=== PATIENT | female | born 1985 | race Caucasian/White ===

== ENCOUNTER → 2020-10-06 | Outpatient (CLI) | payer BC ==
--- NOTE | 2020-10-06 16:22 | US ---
EXAMINATION TYPE: US st tissue neck DATE OF EXAM: 10/06/2020 COMPARISON: NONE CLINICAL HISTORY: 35-year-old female R22.1 neck mass. Mirror Polisher notes: Patient has felt palpable kimmy mp right neck, laterally for years. TECHNIQUE: Targeted ultrasound examination along the patient's lateral right neck palpable site. FINDINGS: Area of palpable lump = 1.2 x 0.8 x 0.5 cm. Mostly hypoechoic, with area of increased echogenicity. P ossible lymph node. IMPRESSION: Possible mildly thickened but nonenlarged lymph node along the palpable lateral right neck. This jose manuel ures 8 mm short axis. Probably reactive/post inflammatory. Consider six-month follow-up ultrasound to reassess. Image sooner if any growth is noted.
== END | disposition home or self-care (01) ==
LOC: RADUSWWP 13:27
PROVIDERS: ATTEND Family Medicine
DX: R22.1 Localized swelling, mass and lump, neck (principal); Z88.1 Allergy status to other antibiotic agents
CPT/HCPCS: 76536

== ENCOUNTER 2020-11-10 11:07 | Emergency (ER) | payer BC ==
[2020-11-10 11:16] VITALS: BP 102/69; PULSE 100; RESP 18; TEMP 98.1
[2020-11-10 12:45] LABS: ALT 16 U/L (4-34); AST 20 U/L (14-36); African American GFR (CKD) >90 (>60 ml/min/1.73 sqM); Albumin 4.1 g/dL (3.5-5.0); Alkaline Phosphatase 83 U/L (38-126); Anion Gap 7 mmol/L; Blood Urea Nitrogen 11 mg/dL (7-17); Calcium 9.3 mg/dL (8.4-10.2); Carbon Dioxide 24 mmol/L (22-30); Chloride 106 mmol/L (98-107); Glucose 101 mg/dL (74-99); Non-African American GFR(CKD) >90 (>60 ml/min/1.73 sqM); Potassium 4.3 mmol/L (3.5-5.1); Sodium 137 mmol/L (137-145); Total Bilirubin 0.6 mg/dL (0.2-1.3); Total Protein 7.2 g/dL (6.3-8.2)
--- NOTE | 2020-11-10 12:46 | US ---
EXAMINATION TYPE: Transabdominal DATE OF EXAM: 11/10/2020 12:33 PM COMPARISON: NONE CLINICAL HISTORY: pain. vaginal bleeding, cramping EXAM PERFORMED: Transabdominal (TA) EXAM MEASUREMENTS: GESTATIONAL AGE / DATING Physician Established: Not yet established Dates by LMP: (4 weeks/5 days) EDC: 07/15/21 Dates by First Scan: No previous this is first scan Dates by Current Scan for: no evidence of IUP at this time MATERNAL ANATOMY Uterus: 9.8 x 4.9 x 5.5cm Right Ovary: 3.5 x 1.3 x 1.7cm Left Ovary: 2.7 x 2.1 x 2.3cm Post CDS / Adnexa: appears wnl Presence of free fluid: no Presence of corpus luteal cyst: hypoechoic area left ovary = 1.5 x 1.5 x 1.4cm GESTATION / SURVEY no evidence of IUP at this time Date of LMP: 10/08/20 Beta HcG (if available): Not available at this time IMPRESSION: 1. No evidence of intrauterine identified. Differential diagnosis in the setting of a posit emma beta hCG would include normal too early to detect, missed , although ectopic pr egnancy could not be excluded.
[2020-11-10 12:57] LABS: Appearance,Urine Cloudy (Clear); Bilirubin,Urine Negative (Negative); Blood,Urine Moderate (Negative); Color,Urine Yellow; Glucose,Urine (UA) Negative (Negative); Ketones,Urine Negative (Negative); Leukocyte Esterase,Urine Negative (Negative); Mucus,Urine Rare /hpf; Nitrite,Urine Negative (Negative); Protein,Urine Negative (Negative); RBC,Urine 1 /hpf (0-5); Specific Gravity,Urine 1.014 (1.001-1.035); Squamous Epithelial Cell,Urine 5 /hpf (0-4); Urobilinogen,Urine <2.0 mg/dL (<2.0); WBC,Urine 1 /hpf (0-5)
[2020-11-10 13:01] LABS: HCG,Quantitative Serum 44.3 mIU/mL
[2020-11-10 13:14] LABS: Basophils # (A) 0.1 k/uL (0-0.2); Basophils % (A) 1 %; Eosinophils # (A) 0.1 k/uL (0-0.7); Eosinophils % (A) 1 %; HCT 37.5 % (34.0-46.0); HGB 13.3 gm/dL (11.4-16.0); Lymphocytes # (A) 1.2 k/uL (1.0-4.8); Lymphocytes % (A) 21 %; MCH 30.9 pg (25.0-35.0); MCHC 35.5 g/dL (31.0-37.0); MCV 87.1 fL (80.0-100.0); Mean Platelet Volume 6.9; Monocytes # (A) 0.3 k/uL (0-1.0); Monocytes % (A) 5 %; Neutrophils # (A) 4.2 k/uL (1.3-7.7); Neutrophils % (A) 72 %; Platelet Count 262 k/uL (150-450); RBC 4.31 m/uL (3.80-5.40); RDW 11.9 % (11.5-15.5); WBC 5.9 k/uL (3.8-10.6)
--- NOTE | 2020-11-10 13:19 | ED ---
Female Urogenital HPI - General Chief complaint: Vaginal Bleeding Stated complaint: 3wks pre/bleeding Time Seen by Provider: 11/10/20 11:41 Source: patient Mode of arrival: ambulatory Limitations: no limitations - History of Present Illness Initial comments: 35yo female with hx of previous ectopic treated by Dr Packer with methotrexate presenting for cc of bleeding in . Patient states she has had vaginal bleeding for the past 5 days she states initially was spotting, she states is heavy for 2 days she states she took a positive proceeded to us yesterday. Patient states she has some mild cramping no severe pain. Patient is concerned that she had previous ectopic who presented to the emergency department. Patient denies any dysuria urgency frequency nausea vomiting fevers, or vaginal discharge. Last Menstrual Period: 10/15/20 - Related Data Allergies Allergy/AdvReac Type Severity Reaction Status Date / Time No Known Allergies Allergy Verified 11/10/20 11:12 Review of Systems ROS Statement: Those systems with pertinent positive or pertinent negative responses have been documented in the HPI. ROS Other: All systems not noted in ROS Statement are negative. Past Medical History Additional Past Medical History / Comment(s): ectopic History of Any Multi-Drug Resistant Organisms: None Reported Past Surgical History: Section, Cholecystectomy Past Psychological History: No Psychological Hx Reported Smoking Status: Never smoker Past Alcohol Use History: Occasional Past Drug Use History: None Reported General Exam - General Exam Comments Initial Comments: General: The patient is awake and alert, in no distress, and does not appear acutely ill. Eye: Pupils are equal, round and reactive to light, extra-ocular movements are intact. No nystagmus. There is normal conjunctiva bilaterally. No signs of icterus. Cardiovascular: There is a regular rate and rhythm. No murmur, rub or gallop is appreciated. Respiratory: Lungs are clear to auscultation, respirations are non-labored, breath sounds are equal. No wheezes, stridor, rales, or rhonchi. Gastrointestinal: Soft, non-distended, mild lower abdominal discomfort, abdomen without masses or organomegaly noted. There is no rebound or guarding present. Musculoskeletal: Normal ROM, no tenderness. Strength 5/5. Sensation intact. Pulses equal bilaterally 2+. Neurological: A&O x 3. CN II-XII intact grossly, There are no obvious motor or sensory deficits. Coordination appears grossly intact. Speech is normal. Skin: Skin is warm and dry and no rashes or lesions are noted. Psychiatric: Cooperative, appropriate mood & affect, normal judgment. Limitations: no limitations Course Vital Signs 11/10/20 11:13 Temperature 98.1 F Pulse Rate 100 Respiratory 18 Rate Blood Pressure 102/69 O2 Sat by Pulse 99 Oximetry Medical Decision Making - Medical Decision Making Labs stable. Hcg very low at 44. no IUP. luteal cyst left sided. no evidence of ectopic at this time but it cannot be ruled out. patient refused pelvic. no significant pain endorsed. BP, HgB stable. patient will be discharged with re peat hCG in 48 hours and follow up closely with [employer] BUSINESS DEVELOPMENT MANAGER. Patient agreeable to this care plan discharge as well as attending provider, Dr Montalvo. Return parameters and risk of ectopic discussed with patient. - Lab Data Result diagrams: 11/10/20 12:50 11/10/20 12:16 Lab Results 11/10/20 11/10/20 11/10/20 Range/Units 12:16 12:16 12:16 WBC (3.8-10.6) k/uL RBC (3.80-5.40) m/uL Hgb (11.4-16.0) gm/dL Hct (34.0-46.0) % MCV (80.0-100.0) fL MCH (25.0-35.0) pg MCHC (31.0-37.0) g/dL RDW (11.5-15.5) % Plt Count (150-450) k/uL MPV Neutrophils % % Lymphocytes % % Monocytes % % Eosinophils % % Basophils % % Neutrophils # (1.3-7.7) k/uL Lymphocytes # (1.0-4.8) k/uL Monocytes # (0-1.0) k/uL Eosinophils # (0-0.7) k/uL Basophils # (0-0.2) k/uL Sodium 137 (137-145) mmol/L Potassium 4.3 (3.5-5.1) mmol/L Chloride 106 (98-107) mmol/L Carbon Dioxide 24 (22-30) mmol/L Anion Gap 7 mmol/L BUN 11 (7-17) mg/dL Creatinine 0.74 (0.52-1.04) mg/dL Est GFR (CKD-EPI)AfAm >90 (>60 ml/min/1.73 sqM) Est GFR (CKD-EPI)NonAf >90 (>60 ml/min/1.73 sqM) Glucose 101 H (74-99) mg/dL Calcium 9.3 (8.4-10.2) mg/dL Total Bilirubin 0.6 (0.2-1.3) mg/dL AST 20 (14-36) U/L ALT 16 (4-34) U/L Alkaline Phosphatase 83 (38-126) U/L Total Protein 7.2 (6.3-8.2) g/dL Albumin 4.1 (3.5-5.0) g/dL HCG, Quant 44.3 mIU/mL Urine Color Yellow Urine Appearance Cloudy H (Clear) Urine pH 6.0 (5.0-8.0) Ur Specific Temple 1.014 (1.001-1.035) Urine Protein Negative (Negative) Urine Glucose (UA) Negative (Negative) Urine Ketones Negative (Negative) Urine Blood Moderate H (Negative) Urine Nitrite Negative (Negative) Urine Bilirubin Negative (Negative) Urine Urobilinogen <2.0 (<2.0) mg/dL Ur Leukocyte Esterase Negative (Negative) Urine RBC 1 (0-5) /hpf Urine WBC 1 (0-5) /hpf Ur Squamous Epith Cells 5 H (0-4) /hpf Urine Mucus Rare H (None) /hpf Blood Type O Positive Blood Type Recheck O Pos Bld Type Recheck Status No Antibody Screen NEGATIVE Spec Expiration Date 11/13/2020 - 231511/10/20 Range/Units 12:50 WBC 5.9 (3.8-10.6) k/uL RBC 4.31 (3.80-5.40) m/uL Hgb 13.3 (11.4-16.0) gm/dL Hct 37.5 (34.0-46.0) % MCV 87.1 (80.0-100.0) fL MCH 30.9 (25.0-35.0) pg MCHC 35.5 (31.0-37.0) g/dL RDW 11.9 (11.5-15.5) % Plt Count 262 (150-450) k/uL MPV 6.9 Neutrophils % 72 % Lymphocytes % 21 % Monocytes % 5 % Eosinophils % 1 % Basophils % 1 % Neutrophils # 4.2 (1.3-7.7) k/uL Lymphocytes # 1.2 (1.0-4.8) k/uL Monocytes # 0.3 (0-1.0) k/uL Eosinophils # 0.1 (0-0.7) k/uL Basophils # 0.1 (0-0.2) k/uL Sodium (137-145) mmol/L Potassium (3.5-5.1) mmol/L Chloride (98-107) mmol/L Carbon Dioxide (22-30) mmol/L Anion Gap mmol/L BUN (7-17) mg/dL Creatinine (0.52-1.04) mg/dL Est GFR (CKD-EPI)AfAm (>60 ml/min/1.73 sqM) Est GFR (CKD-EPI)NonAf (>60 ml/min/1.73 sqM) Glucose (74-99) mg/dL Calcium (8.4-10.2) mg/dL Total Bilirubin (0.2-1.3) mg/dL AST (14-36) U/L ALT (4-34) U/L Alkaline Phosphatase (38-126) U/L Total Protein (6.3-8.2) g/dL Albumin (3.5-5.0) g/dL HCG, Quant mIU/mL Urine Color Urine Appearance (Clear) Urine pH (5.0-8.0) Ur Specific Temple (1.001-1.035) Urine Protein (Negative) Urine Glucose (UA) (Negative) Urine Ketones (Negative) Urine Blood (Negative) Urine Nitrite (Negative) Urine Bilirubin (Negative) Urine Urobilinogen (<2.0) mg/dL Ur Leukocyte Esterase (Negative) Urine RBC (0-5) /hpf Urine WBC (0-5) /hpf Ur Squamous Epith Cells (0-4) /hpf Urine Mucus (None) /hpf Blood Type Blood Type Recheck Bld Type Recheck Status Antibody Screen Spec Expiration Date Disposition Clinical Impression: Vaginal bleeding during , Threatened Disposition: HOME SELF-CARE Condition: Good Additional Instructions: Please use medication as discussed. Please follow-up with OBGYN in next week, return for any increasing pain/bleeding, lightheadedness, repeat HCG in 48 hours. Please return to emergency room if the symptoms increase or worsen or for any other concerns. Is patient prescribed a controlled substance at d/c from ED?: No Referrals: Lenny Kauffman MD [Primary Care Provider] - 1-2 days Mango Packer MD [STAFF PHYSICIAN] - 1-2 days Time of Disposition: 13:18
== END 2020-11-10 13:34 | disposition home or self-care (01) ==
LOC: EC 11:07
DX: O20.0 Threatened abortion (principal)
CPT/HCPCS: 36415; 76801; 80053; 81001; 84702; 85025; 86850; 86900; 86901; 99284

== ENCOUNTER → 2020-11-12 | Outpatient (CLI) | payer BC | END | disposition home or self-care (01) | LOC: LABWHC1 07:41 | PROVIDERS: ATTEND Family Medicine | DX: O20.0 Threatened abortion (principal); Z3A.00 Weeks of gestation of pregnancy not specified | CPT/HCPCS: 36415; 84702 ==

== ENCOUNTER → 2020-11-18 | Outpatient (CLI) | payer BC | END | disposition home or self-care (01) | LOC: LABWHC1 15:04 | PROVIDERS: ATTEND Obstetrics & Gynecology | DX: O20.0 Threatened abortion (principal); Z3A.00 Weeks of gestation of pregnancy not specified | CPT/HCPCS: 36415; 84702 ==

== ENCOUNTER → 2020-11-26 | Outpatient (CLI) | payer BC | END | disposition home or self-care (01) | LOC: LABWHC1 08:23 | PROVIDERS: ATTEND Obstetrics & Gynecology | DX: O02.1 Missed abortion (principal); Z3A.00 Weeks of gestation of pregnancy not specified | CPT/HCPCS: 36415; 84702 ==

== ENCOUNTER → 2020-11-27 | Outpatient (CLI) | payer BC ==
[~2020-11-27] MED LIST: METHOTREXATE SODIUM IM ONE
[2020-11-27 14:40] VITALS: BP 115/79; PULSE 88; RESP 16; TEMP 98.4
== END ==
LOC: PROCWHC3 14:07
PROVIDERS: ATTEND Obstetrics & Gynecology
DX: O00.90 Unspecified ectopic pregnancy without intrauterine pregnancy (principal); Z3A.00 Weeks of gestation of pregnancy not specified
CPT/HCPCS: 96402; J9260

== ENCOUNTER → 2020-11-27 | Outpatient (CLI) | payer BC ==
[2020-11-27 19:20] LABS: MCH 29.9 pg (27.0-32.0); MCHC 32.5 g/dL (32.0-37.0); Mean Platelet Volume 10.2 fL (9.5-12.2); Platelet Count 315 X 10*3/uL (140-440); RBC 4.35 X 10*6/uL (4.10-5.20); RDW 11.8 % (11.5-14.5); WBC 7.35 X 10*3/uL (4.50-10.00)
[2020-11-28 02:01] LABS: African American GFR (CKD) 97.4 (60.0-200.0)
[2020-11-28 02:09] LABS: HCG,Quantitative Serum 43.2 mIU/mL
== END | disposition home or self-care (01) ==
LOC: LABWHC1 13:43
PROVIDERS: ATTEND Obstetrics & Gynecology
DX: O00.90 Unspecified ectopic pregnancy without intrauterine pregnancy (principal); Z3A.00 Weeks of gestation of pregnancy not specified
CPT/HCPCS: 36415; 82565; 84450; 84460; 84520; 84702; 85027; 86850; 86900; 86901

== ENCOUNTER → 2020-12-01 | Outpatient (CLI) | payer BC ==
[2020-12-01 23:51] LABS: HCT 40.1 % (37.2-46.3); MCH 29.4 pg (27.0-32.0); MCHC 32.4 g/dL (32.0-37.0); MCV 90.7 fL (80.0-97.0); Mean Platelet Volume 10.3 fL (9.5-12.2); Platelet Count 306 X 10*3/uL (140-440); RBC 4.42 X 10*6/uL (4.10-5.20); RDW 11.7 % (11.5-14.5); WBC 7.87 X 10*3/uL (4.50-10.00)
== END | disposition home or self-care (01) ==
LOC: LABWHC1 15:27
PROVIDERS: ATTEND Obstetrics & Gynecology
DX: O00.90 Unspecified ectopic pregnancy without intrauterine pregnancy (principal); Z3A.00 Weeks of gestation of pregnancy not specified
CPT/HCPCS: 36415; 84702; 85027

== ENCOUNTER → 2020-12-04 | Outpatient (CLI) | payer BC ==
[2020-12-04 14:55] LABS: HCT 39.6 % (37.2-46.3); MCH 29.7 pg (27.0-32.0); MCHC 32.8 g/dL (32.0-37.0); MCV 90.6 fL (80.0-97.0); Mean Platelet Volume 10.1 fL (9.5-12.2); Platelet Count 250 X 10*3/uL (140-440); RBC 4.37 X 10*6/uL (4.10-5.20); RDW 11.9 % (11.5-14.5); WBC 5.31 X 10*3/uL (4.50-10.00)
[2020-12-04 23:26] LABS: African American GFR (CKD) 97.4 (60.0-200.0)
[2020-12-04 23:35] LABS: HCG,Quantitative Serum 9.2 mIU/mL
== END | disposition home or self-care (01) ==
LOC: LABWHC1 09:56
PROVIDERS: ATTEND Obstetrics & Gynecology
DX: O00.90 Unspecified ectopic pregnancy without intrauterine pregnancy (principal); Z3A.00 Weeks of gestation of pregnancy not specified
CPT/HCPCS: 36415; 82565; 84450; 84460; 84520; 84702; 85027

== ENCOUNTER 2021-04-13 11:47 | Emergency (ER) | payer BC ==
[2021-04-13 12:07] VITALS: RESP 18
[2021-04-13] MEDS ORDERED: METOCLOPRAMIDE 5 MG/ML 2 ML VIAL IVP STA (12:22)
[2021-04-13] MEDS ORDERED: diphenhydrAMINE 50 MG/ML 1 ML VIAL IVP STA (12:22)
[2021-04-13] MEDS ORDERED: CAFFEINE CITRATE 500 MG in DEXTROSE 5% IN WATER 50 ML IVPB STA ×2 (12:22)
[2021-04-13] MEDS ORDERED: SODIUM CHLORIDE 0.9% 1,000 ML IV STA (12:26)
--- NOTE | 2021-04-13 12:28 | ED ---
General Adult HPI - General Chief complaint: Recheck/Abnormal Lab/Rx Stated complaint: spinal headache Time Seen by Provider: 04/13/21 12:08 Source: patient, family, RN notes reviewed Mode of arrival: wheelchair Limitations: no limitations - History of Present Illness Initial comments: Patient is a pleasant 36-year-old female presenting to the emergency Department with complaints of headache. Onset of symptoms was after lumbar puncture 6 days ago. Patient states headache has been persistent. Headache is worse with upright positions. Headache improved with lying down. Patient did have some nausea and vomiting today. Patient has decreased appetite. No fevers. Patient did have lumbar puncture done 6 days ago at [facility] [place] secondary to new onset seizure. Headache started after lumbar puncture. - Related Data Home Medications Medication Instructions Recorded Confirmed Ergocalciferol (Vitamin D2) 1,250 mcg PO WEEKLY 11/27/20 11/27/20 [Vitamin D2 (50,000 Iu)] Previous Rx's Medication Instructions Recorded Metoclopramide HCl [Reglan] 10 mg PO Q6HR PRN #15 tablet 04/13/21 Allergies Allergy/AdvReac Type Severity Reaction Status Date / Time ceftriaxone [From Rocephin] Allergy Rash/Hives Verified 04/13/21 12:04 Review of Systems ROS Statement: Those systems with pertinent positive or pertinent negative responses have been documented in the HPI. ROS Other: All systems not noted in ROS Statement are negative. Constitutional: Denies: fever Eyes: Denies: eye pain ENT: Denies: ear pain Respiratory: Denies: cough Cardiovascular: Denies: chest pain Endocrine: Denies: fatigue Gastrointestinal: Reports: nausea, vomiting. Denies: abdominal pain Genitourinary: Denies: dysuria Musculoskeletal: Denies: back pain Skin: Denies: rash Neurological: Reports: as per HPI, headache. Denies: weakness Past Medical History Additional Past Medical History / Comment(s): ectopic History of Any Multi-Drug Resistant Organisms: None Reported Past Surgical History: Section, Cholecystectomy Past Psychological History: No Psychological Hx Reported Smoking Status: Never smoker Past Alcohol Use History: None Reported Past Drug Use History: None Reported General Exam Limitations: no limitations General appearance: alert, in no apparent distress Head exam: Present: atraumatic Eye exam: Present: normal appearance, PERRL, EOMI. Absent: nystagmus ENT exam: Present: normal oropharynx Neck exam: Present: normal inspection Respiratory exam: Present: normal lung sounds bilaterally Cardiovascular Exam: Present: regular rate, normal rhythm GI/Abdominal exam: Present: soft. Absent: tenderness Extremities exam: Present: normal inspection Neurological exam: Present: alert, oriented X3, CN II-XII intact. Absent: motor sensory deficit Expanded Neurological exam: Present: protecting the airway Speech: Present: fluid speech Cranial nerves: EOM's Intact: Normal, Facial Sensation: Normal Sensory exam: Upper Extremity Light Touch: Normal, Lower Extremity Light Touch: Normal Motor strength exam: RUE: 5, LUE: 5, RLE: 5, LLE: 5 Eye Response: (4) open spontaneously Motor Response: (6) obeys commands Verbal Response: (5) oriented Psychiatric exam: Present: normal affect, normal mood Skin exam: Present: normal color Course Vital Signs 04/13/21 12:05 Temperature 97.5 F L Pulse Rate 101 H Respiratory 18 Rate Blood Pressure 134/90 O2 Sat by Pulse 98 Oximetry - Reevaluation(s) Reevaluation #1: 04/13/21 15:34 Patient reevaluated and feeling much better. Patient was able to get up using restroom without difficulty. Patient did request speaking with anesthesiologist. I did discuss case with Dr. Hardy who recommends not doing blood patch secondary to risks of patient's symptoms worsen including back discomfort following reentering the area. Patient updated regarding this and is agreeable to hold off on blood patch at this time. Patient is made aware that typically spinal headaches resolve within one week. Disposition Clinical Impression: Spinal headache Disposition: HOME SELF-CARE Condition: Stable Instructions (If sedation given, give patient instructions): Acute Headache (ED) Additional Instructions: Limit activity for the next one to 2 days. Please follow-up with primary care physician in the next day or 2 for recheck. Return for fever, increased pain, v omiting, worsening or changing symptoms or other concerns. Prescriptions have been sent to your pharmacy. [id number] Tylenol or Motrin as needed. [id number] Benadryl as needed. Prescriptions: Metoclopramide HCl [Reglan] 10 mg PO Q6HR PRN #15 tablet PRN Reason: Nausea Is patient prescribed a controlled substance at d/c from ED?: No Referrals: Lenny Kauffman MD [Primary Care Provider] - 1-2 days Time of Disposition: 15:38
[2021-04-13] MEDS ORDERED: CAFFEINE-SODIUM BENZOATE 1,000 MG in SODIUM CHLORIDE 0.9% 1,000 ML IVPB ONE (12:30)
[2021-04-13 16:03] VITALS: BP 98/54; PULSE 65; TEMP 97.9
== END 2021-04-13 16:03 | disposition home or self-care (01) ==
LOC: EC 11:47
DX: R51.0 Headache with orthostatic component, not elsewhere classified (principal); G97.1 Other reaction to spinal and lumbar puncture; Z88.1 Allergy status to other antibiotic agents; Z90.49 Acquired absence of other specified parts of digestive tract
CPT/HCPCS: 99283; 96365; 96366 ×2; 96375 ×2; J1200; J2765

== ENCOUNTER 2021-04-15 08:45 | Emergency (ER) | payer BC ==
[2021-04-15 08:50] VITALS: RESP 18; TEMP 97.5
[2021-04-15] MEDS ORDERED: SODIUM CHLORIDE 0.9% 1,000 ML IV STA (09:01)
[2021-04-15] MEDS ORDERED: MORPHINE SULFATE 2 MG/ML SYRINGE IVP STA (09:02)
--- NOTE | 2021-04-15 09:06 | ED ---
General Adult HPI - General Chief complaint: Nausea/Vomiting/Diarrhea Stated complaint: vomiting, left side numbness Time Seen by Provider: 04/15/21 08:54 Source: patient, family, RN notes reviewed Mode of arrival: wheelchair Limitations: no limitations - History of Present Illness Initial comments: Patient is a pleasant 36-year-old female presenting to the emergency department with concerns for her left arm feeling numb. Onset of symptoms was yesterday morning. Patient did have lumbar puncture done at outside facility over a week ago. Patient returned here 2 days ago concerning for headache that was positional in nature following the lumbar puncture. Patient did improve with medications in the emergency department. Patient states headache continues to improve. Headache at this time is rated 45/10. Patient did have some numbness of her left face early this morning that has improved. Patient did have some weakness and numbness of her left arm since yesterday morning. This has persisted. Patient does not want any medication for nausea at this time. - Related Data Home Medications Medication Instructions Recorded Confirmed Ergocalciferol (Vitamin D2) 1,250 mcg PO Q14D 11/27/20 04/15/21 [Vitamin D2 (50,000 Iu)] Aspirin/Acetaminophen/Caffeine 2 tab PO Q6H PRN 04/15/21 04/15/21 [Excedrin Extra Strength Caplet] Isibloom 0.15-0.03mg 1 tab PO DAILY 04/15/21 04/15/21 diphenhydrAMINE [Benadryl] 25 mg PO Q6H PRN 04/15/21 04/15/21 Previous Rx's Medication Instructions Recorded Metoclopramide HCl [Reglan] 10 mg PO Q6HR PRN #15 tablet 04/13/21 Allergies Allergy/AdvReac Type Severity Reaction Status Date / Time ceftriaxone [From Rocephin] Allergy Rash/Hives Verified 04/15/21 10:30 Review of Systems ROS Statement: Those systems with pertinent positive or pertinent negative responses have been documented in the HPI. ROS Other: All systems not noted in ROS Statement are negative. Constitutional: Denies: fever Eyes: Denies: eye pain ENT: Denies: ear pain Respiratory: Denies: cough Cardiovascular: Denies: chest pain Endocrine: Denies: fatigue Gastrointestinal: Reports: nausea, vomiting. Denies: abdominal pain Genitourinary: Denies: dysuria Musculoskeletal: Denies: back pain Skin: Denies: rash Neurological: Reports: as per HPI, headache, weakness, numbness. Denies: confusion Past Medical History Additional Past Medical History / Comment(s): ectopic History of Any Multi-Drug Resistant Organisms: None Reported Past Surgical History: Section, Cholecystectomy Past Psychological History: No Psychological Hx Reported Smoking Status: Never smoker Past Alcohol Use History: None Reported Past Drug Use History: None Reported General Exam Limitations: no limitations General appearance: alert, in no apparent distress Head exam: Present: atraumatic, normocephalic Eye exam: Present: normal appearance, PERRL, EOMI. Absent: nystagmus ENT exam: Present: normal oropharynx Neck exam: Present: normal inspection Respiratory exam: Present: normal lung sounds bilaterally Cardiovascular Exam: Present: regular rate, normal rhythm GI/Abdominal exam: Present: soft. Absent: tenderness Extremities exam: Present: normal inspection Neurological exam: Present: alert, oriented X3, CN II-XII intact Expanded Neurological exam: Present: protecting the airway Speech: Present: fluid speech Cranial nerves: EOM's Intact: Normal, Facial Sensation: Normal Sensory exam: Upper Extremity Light Touch: Abnormal Left, Lower Extremity Light Touch: Normal Motor strength exam: RUE: 5, LUE: 3, RLE: 5, LLE: 5 Eye Response: (4) open spontaneously Motor Response: (6) obeys commands Verbal Response: (5) oriented Psychiatric exam: Present: normal affect, normal mood Skin exam: Present: normal color Course Vital Signs 04/15/21 04/15/21 04/15/21 08:46 09:15 09:30 Temperature 97.5 F L 97.5 F L Pulse Rate 110 H 105 H 90 Respiratory 18 18 18 Rate Blood Pressure 125/88 137/93 123/67 O2 Sat by Pulse 95 98 100 Oximetry 04/15/21 10:00 Temperature Pulse Rate 85 Respiratory 18 Rate Blood Pressure 126/66 O2 Sat by Pulse 100 Oximetry - Reevaluation(s) Reevaluation #1: 04/15/21 09:13 Case was discussed in detail with Dr. Monroe. He will review the films and call back. He agrees patient is not a TPA candidate secondary to onset of symptoms over 24 hours ago. 04/15/21 10:03 Case discussed with radiologist. Case also discussed with Dr. Monroe. They both have concern for venous sinus thrombosis. Case discussed with Dr. Monroe who recommends low-dose heparin. He will call back regarding potential admission versus transfer. Patient will need MRI. Patient updated. Dr. Monroe is comfortable with patient having heparin despite recent lumbar puncture approximately 8 days ago. 04/15/21 10:19 Patient states she is on control. 04/15/21 10:24 Case again discussed with Dr. Monroe who wants low dose heparin without bolus. Keep ptt between 45 and 60. He does want hypercoagulable panel done prior to heparin. Patient will need MRI. Patient can be admitted here to our ICU. Neurology has been paged. 04/15/21 11:12 Patient and family updated. Case discussed with Dr. Braden with neurology here. Case also discussed with Dr. Lund who had concerns regarding keeping patient here. Case also discussed with Dr. Kauffman who also had concerns keeping patient here. Case was again discussed with Dr. Carvalho will accept transfer to [facility]. He also spoke with his practitioner Meryl who will notify the emergency department but otherwise they will accept transfer to [facility]. She said we do not need to contact the emergency department. Patient again updated regarding transfer status. 04/15/21 11:13 EKG Findings - EKG Comments: EKG Findings:: Normal sinus rhythm with rate of 93. AL 1:30. QRS 76. QT 364. QTC 452. Normal axis. Normal QRS. No acute ST change. Medical Decision Making - Lab Data Result diagrams: 04/15/21 09:15 04/15/21 09:15 Lab Results 04/15/21 04/15/21 04/15/21 Range/Units 09:05 09:15 09:15 WBC 8.2 (3.8-10.6) k/uL RBC 4.63 (3.80-5.40) m/uL Hgb 14.3 (11.4-16.0) gm/dL Hct 41.2 (34.0-46.0) % MCV 89.1 (80.0-100.0) fL MCH 31.0 (25.0-35.0) pg MCHC 34.7 (31.0-37.0) g/dL RDW 11.5 (11.5-15.5) % Plt Count 274 (150-450) k/uL MPV 7.3 Neutrophils % 81 % Lymphocytes % 13 % Monocytes % 5 % Eosinophils % 1 % Basophils % 0 % Neutrophils # 6.7 (1.3-7.7) k/uL Lymphocytes # 1.0 (1.0-4.8) k/uL Monocytes # 0.4 (0-1.0) k/uL Eosinophils # 0.0 (0-0.7) k/uL Basophils # 0.0 (0-0.2) k/uL PT 10.4 (9.0-12.0) sec INR 1.0 (<1.2) APTT 21.5 L (22.0-30.0) sec Sodium (137-145) mmol/L Potassium (3.5-5.1) mmol/L Chloride (98-107) mmol/L Carbon Dioxide (22-30) mmol/L Anion Gap mmol/L BUN (7-17) mg/dL Creatinine (0.52-1.04) mg/dL Est GFR (CKD-EPI)AfAm (>60 ml/min/1.73 sqM) Est GFR (CKD-EPI)NonAf (>60 ml/min/1.73 sqM) Glucose (74-99) mg/dL POC Glucose (mg/dL) 109 H (75-99) mg/dL POC Glu Knitter Helper ISABELLE Valentina Clark Calcium (8.4-10.2) mg/dL Total Bilirubin (0.2-1.3) mg/dL AST (14-36) U/L ALT (4-34) U/L Alkaline Phosphatase (38-126) U/L Troponin I (0.000-0.034) ng/mL Total Protein (6.3-8.2) g/dL Albumin (3.5-5.0) g/dL 04/15/21 04/15/21 Range/Units 09:15 09:15 WBC (3.8-10.6) k/uL RBC (3.80-5.40) m/uL Hgb (11.4-16.0) gm/dL Hct (34.0-46.0) % MCV (80.0-100.0) fL MCH (25.0-35.0) pg MCHC (31.0-37.0) g/dL RDW (11.5-15.5) % Plt Count (150-450) k/uL MPV Neutrophils % % Lymphocytes % % Monocytes % % Eosinophils % % Basophils % % Neutrophils # (1.3-7.7) k/uL Lymphocytes # (1.0-4.8) k/uL Monocytes # (0-1.0) k/uL Eosinophils # (0-0.7) k/uL Basophils # (0-0.2) k/uL PT (9.0-12.0) sec INR (<1.2) APTT (22.0-30.0) sec Sodium 137 (137-145) mmol/L Potassium 4.0 (3.5-5.1) mmol/L Chloride 103 (98-107) mmol/L Carbon Dioxide 20 L (22-30) mmol/L Anion Gap 14 mmol/L BUN 12 (7-17) mg/dL Creatinine 0.93 (0.52-1.04) mg/dL Est GFR (CKD-EPI)AfAm >90 (>60 ml/min/1.73 sqM) Est GFR (CKD-EPI)NonAf 81 (>60 ml/min/1.73 sqM) Glucose 118 H (74-99) mg/dL POC Glucose (mg/dL) (75-99) mg/dL POC Glu Knitter Helper ID Calcium 9.8 (8.4-10.2) mg/dL Total Bilirubin 0.7 (0.2-1.3) mg/dL AST 26 (14-36) U/L ALT 37 H (4-34) U/L Alkaline Phosphatase 90 (38-126) U/L Troponin I <0.012 (0.000-0.034) ng/mL Total Protein 7.7 (6.3-8.2) g/dL Albumin 4.2 (3.5-5.0) g/dL - Radiology Data Radiology results: report reviewed (CT and CTA as discussed with radiologist concerns for venous sinus thrombosis.) Critical Care Time Critical Care Time: Yes Total Critical Care Time: 39 Disposition Clinical Impression: Cerebral venous sinus thrombosis Disposition: OTHER INSTITUTION NOT DEFINED Condition: Serious Is patient prescribed a controlled substance at d/c from ED?: No Referrals: Lenny Kauffman MD [Primary Care Provider] - 1-2 days Time of Disposition: 11:14 - Out of Hospital Transfer - Req. Specs Out of Hospital Transfer - Requested Specifics: Other Emergency Center
[2021-04-15 09:07] LABS: Glucose,Whole Blood 109 mg/dL (75-99)
[2021-04-15 09:23] LABS: Basophils % (A) 0 %; Eosinophils % (A) 1 %; HCT 41.2 % (34.0-46.0); HGB 14.3 gm/dL (11.4-16.0); Lymphocytes % (A) 13 %; MCHC 34.7 g/dL (31.0-37.0); MCV 89.1 fL (80.0-100.0); Mean Platelet Volume 7.3; Monocytes # (A) 0.4 k/uL (0-1.0); Monocytes % (A) 5 %; Neutrophils # (A) 6.7 k/uL (1.3-7.7); Neutrophils % (A) 81 %; Platelet Count 274 k/uL (150-450); RBC 4.63 m/uL (3.80-5.40); RDW 11.5 % (11.5-15.5); WBC 8.2 k/uL (3.8-10.6)
[2021-04-15 09:33] LABS: Prothrombin Time 10.4 sec (9.0-12.0)
[2021-04-15] MEDS ORDERED: ACETAMINOPHEN IV (For NPO) 1,000 MG in EMPTY BAG 1 BAG IVPB STA (09:36)
[2021-04-15] MEDS ORDERED: ONDANSETRON 4 MG/2 ML VIAL IVP STA (09:36)
[2021-04-15 09:37] LABS: ALT 37 U/L (4-34); AST 26 U/L (14-36); African American GFR (CKD) >90 (>60 ml/min/1.73 sqM); Albumin 4.2 g/dL (3.5-5.0); Alkaline Phosphatase 90 U/L (38-126); Anion Gap 14 mmol/L; Blood Urea Nitrogen 12 mg/dL (7-17); Calcium 9.8 mg/dL (8.4-10.2); Carbon Dioxide 20 mmol/L (22-30); Chloride 103 mmol/L (98-107); Glucose 118 mg/dL (74-99); Non-African American GFR(CKD) 81 (>60 ml/min/1.73 sqM); Sodium 137 mmol/L (137-145); Total Bilirubin 0.7 mg/dL (0.2-1.3); Total Protein 7.7 g/dL (6.3-8.2)
--- NOTE | 2021-04-15 09:39 | CT ---
EXAMINATION TYPE: CT brain wo con DATE OF EXAM: 04/15/2021 COMPARISON: None HISTORY: left side weakness CT DLP: 1089 mGycm. Automated Exposure Control for Dose Reduction was Utilized. TECHNIQUE: CT scan of the head is performed without contrast. FINDINGS: There is no acute intracranial hemorrhage, mass effect, or midline shift identified. The ventricles and sulci are within normal limits in size. The globes are intact and the visualized sin uses are clear. Venous sinuses are somewhat hyperdense. Recommend post contrast exam for further eval uation. IMPRESSION: 1. No acute intracranial hemorrhage, mass effect, or midline shift is seen. 2. Posterior sagittal venous sinus is hyperdense recommend post contrast assessment to assess for meredith ous sinus thrombosis. Correlate with MRI to assess for acute infarct.
[2021-04-15 09:48] LABS: Partial Thromboplastin Time 21.5 sec (22.0-30.0)
--- NOTE | 2021-04-15 10:02 | XR ---
EXAMINATION TYPE: XR chest 2V DATE OF EXAM: 04/15/2021 COMPARISON: NONE TECHNIQUE: PA and lateral views submitted. HISTORY: Altered mental status FINDINGS: The lungs are clear and there is no pneumothorax, pleural effusion, or focal pneumonia. IMPRESSION: 1. No acute process.
[2021-04-15] MEDS ORDERED: HEPARIN SODIUM 1,000 UN/ML (10ML VL) IV PRN (10:04)
--- NOTE | 2021-04-15 10:07 | CT ---
EXAMINATION TYPE: CT angio head neck DATE OF EXAM: 04/15/2021 HISTORY: left side weakness, code stroke. Acute onset neurologic deficit. COMPARISON: CT brain study earlier today CT DLP: 1100 mGycm. Automated Exposure Control for Dose Reduction was Utilized. TECHNIQUE: CTA scan of the head and neck are performed with IV Contrast, patient injected with 60 mL of Isovue 370, axial images are obtained, coronal and sagittal reformatted images are reviewed. 3D r econstructed images are created on an independent workstation and reviewed. FINDINGS: Carotid/Vascular Structures: Normal 3 vessel origin from aortic arch without significant plaque or st enosis. Normal origin right common carotid artery from the right brachiocephalic artery. No significa nt plaque or stenosis in the common or internal carotid arteries bilaterally including at the level o f carotid bulbs. Patent external carotid arteries bilaterally without significant plaque or stenosis. Codominant vertebral arteries patent to basilar junction. Patent bilateral posterior communicating ar stephanie. No significant focal stenosis or aneurysmal change in the posterior circulation. Anterior circu lation shows close proximity of the anterior cerebral arteries and thus poor visualization of anterio r communicating artery. No significant focal stenosis or aneurysm in the anterior circulation. As suspected on CT there is draining Straight sinus seen sagittal image 13 with patent internal cere bral veins of Tez. There are patent bilateral transverse and sigmoid sinuses draining into the inte rnal jugular veins. There is filling defect in the superior sagittal sinus corresponding to the hyper dense area on CT. This is consistent with thrombus. There is poor visualization of the inferior sagit amada sinus without definitive hyperdense material on noncontrast CT sagittal image 13, additional thro mbus at this level cannot be excluded. Other: No additional significant abnormalities seen. IMPRESSION: No significant stenosis in the carotid arteries. No significant stenosis at [place]. 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 Critical results communicated to ordering ER physician via telephone at time of dictation. NASCET criteria was used in interpretation of this exam?
[2021-04-15] MEDS ORDERED: LORazepam 2 MG/ML INJ IV STA (10:08)
[2021-04-15] MEDS ORDERED: HEPARIN SOD,PORK IN 0.45% NACL 25,000 UNIT in 0.45% NACL 1 250ML.BAG IV SCH (10:15)
[2021-04-15] MEDS ORDERED: HEPARIN SODIUM 1,000 UN/ML (10ML VL) IV ONE (10:18)
[2021-04-15 10:54] VITALS: BP 126/66; PULSE 85
[2021-04-15] MEDS ORDERED: METOCLOPRAMIDE 5 MG/ML 2 ML VIAL IVP STA (11:23)
[2021-04-16 11:20] LABS: Anti-Thrombin III Antigen 99 % (80 - 120); Protein S Antigen 84 % (50 - 140)
[2021-04-17 13:47] LABS: Protein C Antigen 58 % (72-160)
[2021-04-18 15:29] LABS: Von Willebrand Factor Antigen 97 % (52-214)
== END 2021-04-15 11:45 | disposition other institution (70) ==
LOC: EC 08:45
DX: G08 Intracranial and intraspinal phlebitis and thrombophlebitis (principal); Z79.82 Long term (current) use of aspirin; Z79.899 Other long term (current) drug therapy; Z88.1 Allergy status to other antibiotic agents; Z90.49 Acquired absence of other specified parts of digestive tract
CPT/HCPCS: 36415; 93005; 85379; 85302; 85305; 80053; 85301; 82728; 84484; 85025; 85610; 85730; 85246; 83090; 81241; 71046; 70496; 70450; 70498; 99291; 96365; 96375 ×4; J2060; J2765; J2405; J0131; Q9967; J1644

== ENCOUNTER → 2021-08-13 | Outpatient (CLI) | payer BC ==
--- NOTE | 2021-08-14 05:09 | MR ---
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 There is no mass effect or midline shift. There is no sign of intracranial hemorrhage. Corpus callosum appears normal. Brainstem is intact. There is no evidence of an acute in farct. The wilkinson and white matter structures are fairly normal signal pattern. There is no evidence of cerebral edema. Sella turcica appears normal. There is no evidence of orbital mass. IMPRESSION: Negative MR scan of the brain. No change.
--- NOTE | 2021-08-14 05:49 | MR ---
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 There is some venous flow demonstrated in the sagittal sinus. There is venous flow in the cerebral ve in and the straight sinus and sigmoid sinus. There is venous flow demonstrated in the jugular veins. The size of the transverse sinus is small on the right side. This could relate to some presence of th rombus. 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
== END | disposition home or self-care (01) ==
LOC: RADMRIMAIN 08:31
PROVIDERS: ATTEND Psychiatry & Neurology Neurology
DX: G08 Intracranial and intraspinal phlebitis and thrombophlebitis (principal)
CPT/HCPCS: 70544; 70551

== ENCOUNTER → 2021-11-18 | Outpatient (CLI) | payer BC | END | disposition home or self-care (01) | LOC: LABWHC1 14:06 | PROVIDERS: ATTEND Psychiatry & Neurology Neurology | DX: U07.1 COVID-19 (principal) | CPT/HCPCS: 36415; 86769 ==

== ENCOUNTER → 2022-02-22 | Outpatient (CLI) | payer BC ==
--- NOTE | 2022-02-23 04:52 | MR ---
EXAMINATION TYPE: MR venography head wo con DATE OF EXAM: 02/22/2022 COMPARISON: 08/13/2021 HISTORY: Check up, compare to prior MRV, thrombosis superior sagittal sinus, transverse sinus thrombo sis. MR venographic images were obtained of the intracerebral veins. FINDINGS: There is a filling defect in the posterior sagittal sinus. There appears to be some recanalization. T he transverse sinuses showed normal venous signal pattern. No filling defect. Sigmoid sinus appears n ormal. There is venous flow in the cerebral vein. 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 N o evidence of any new thrombus compared to the old exam.
== END | disposition home or self-care (01) ==
LOC: RADMRIMAIN 19:23
PROVIDERS: ATTEND Psychiatry & Neurology Neurology
DX: G08 Intracranial and intraspinal phlebitis and thrombophlebitis (principal)
CPT/HCPCS: 70544

== ENCOUNTER → 2022-06-14 | Outpatient (CLI) | payer BC ==
--- NOTE | 2022-06-14 22:17 | MR ---
EXAMINATION TYPE: MR venography head wo con DATE OF EXAM: 06/14/2022 4:45 PM CLINICAL INDICATION:Female, 37 years old with history of G08 INTRACRANIAL AND INTRASPINAL PHLEBITIS A ND THR; COMPARISON: 02/22/2022, 08/13/2021, 04/16/2021. TECHNIQUE: MRV of the brain was performed utilizing two-dimensional [id number] technique. FINDINGS: There is a similar morphology to the confluence of sinuses with chronic appearing thrombus. The sagit amada sinus appears patent with similar morphology. No new dural venous sinus thrombosis identified. Pa thology not significantly changed dating back to at least 08/13/2021. IMPRESSION: Similar morphology to the confluence of sinuses with chronic appearing thrombus. The sagittal sinus a s a similar morphology and appears patent. Morphology is similar dating back to 08/13/2021.
== END | disposition home or self-care (01) ==
LOC: RADMRIMAIN 16:14
PROVIDERS: ATTEND Psychiatry & Neurology Neurology
DX: G08 Intracranial and intraspinal phlebitis and thrombophlebitis (principal)
CPT/HCPCS: 70544

== ENCOUNTER → 2025-02-19 | Outpatient (CLI) | payer BC ==
--- NOTE | 2025-02-22 00:54 | MR ---
EXAMINATION TYPE: MR brain wo con DATE OF EXAM: 02/19/2025 8:04 PM COMPARISON: None. CLINICAL INDICATION: Female, 39 years old with history of R51.9 NEW ONSET HEADACHE G08 SINUS THROMBOS IS, New onset headaches, weakness/numbness Left side, Hx sinus venous thrombosis TECHNIQUE: Multiplanar, multiecho imaging on a 3.0 [place] magnet is performed through the brain. Stud y is performed within 24 hours of arrival to the hospital.Multiplanar, multiecho imaging on a 3.0 Katherine la magnet is performed through the knee. IV Contrast: mL (None, if empty) FINDINGS: The craniovertebral junction is normal. The pituitary is normal. Diffusion-weighted imaging is performed. No abnormal hyperintensity is present to suggest an acute i ntracranial infarct or acute ischemic change. There are scattered punctate areas of hyperintensity on T2 and Inversion Recovery weighted sequences which are non-specific but can be related to microvascular ischemic changes. Ventricles and sulci are appropriate for the patient age. Retention cysts are within the right inferior maxillary sinus. Remaining paranasal sinuses and mastoi d air cells are clear. Orbits and optic chiasm as visualized is normal. IMPRESSION: 1. Unremarkable noncontrast MRI brain [facility], , 02/22/2025 12:52 AM
== END | disposition home or self-care (01) ==
LOC: RADMRIMAIN 19:13
PROVIDERS: ATTEND Psychiatry & Neurology Neurology
DX: R51.9 Headache, unspecified (principal); G08 Intracranial and intraspinal phlebitis and thrombophlebitis
CPT/HCPCS: 70551